=== PATIENT | male | born 1985 | race Caucasian/White ===

== ENCOUNTER 2016-11-06 20:41 | Inpatient (IN) | payer OTHER ==
--- NOTE | ~2016-11-06 | PN ---
Unit #: [id number] #: [id number] Patient: NATHEN MCFARLANE [id number] [facility] [address] [place] [address] [id number] MR#: [id number] NAME: NATHEN MCFARLANE ROOM: [facility] Age: 31 Sex: M Admission Date: 11/07/2016 : 1985 Attending Physician: Chapin Buck M.D. Admitting Physician: Chapin Buck M.D. Primary Care Physician: Generic Doctor Not In System [facility] PROGRESS NOTES DATE 11/08/2016 DISCUSSION Mr. Mcfarlane is a 31-year-old, white male who was seen today and chart was reviewed and case was discussed with the staff. He has been anxious, withdrawn and rather seclusive to himself. Meanwhile, he has been cooperative with treatment recommendations. He has been taking medications and tolerating them fairly well. MENTAL STATUS EXAM Young white male who was casually dressed with fair personal hygiene, appears to be in no acute distress or discomfort. He was awake and alert on interaction with intact orientation. His mood was anxious and depressed with congruent affect. He denies any suicidal or homicidal ideation. Also, denies any auditory or visual hallucinations. His insight and judgement remains slightly impaired. TREATMENT PLAN 1. We will continue him on his current medications and treatment protocol. We will monitor his response to the medication and make further adjustments as needed. 2. We will continue to follow up. Dictated by... Dylon Odell/carrillo TD: 11/10/2016 05:14 JOB #: [id number] Unit #: [id number] #: [id number] Patient: NATHEN MCFARLANE PROGRESS NOTES Page 1 of 1 X Chapin Buck MD PROGRESS NOTE
--- NOTE | ~2016-11-06 | PN ---
Unit #: [id number] #: [id number] Patient: NATHEN MCFARLANE [id number] [facility] [address] [place] [address] [id number] MR#: [id number] NAME: NATHEN MCFARLANE ROOM: [facility] Age: 31 Sex: M Admission Date: 11/07/2016 : 1985 Attending Physician: Chapin Bukc M.D. Admitting Physician: Chapin Buck M.D. Primary Care Physician: Generic Doctor Not In System [facility] PROGRESS NOTES DATE OF SERVICE 11/09/2016 DISCUSSION Mr. Mcfarlane is a 31-year-old white male who was seen today. Chart was reviewed and case was discussed with the staff. He has been anxious, withdrawn, and rather seclusive to himself and was subsequently seen to be lying in his bed. Meanwhile, he has been cooperative with treatment recommendation and has been taking the medications and tolerating them fairly well with no reported side effects. MENTAL STATUS EXAMINATION Young white male who is casually dressed with fair personal hygiene, appears to be in no acute distress or discomfort. He was awake and alert on interaction with intact orientation. His mood is anxious and depressed with congruent affect. He denies any suicidal or homicidal ideations and also denies any auditory or visual hallucinations. His insight and judgment remain slightly impaired. TREATMENT PLAN 1. We will continue him on his current medications and treatment protocol. We will monitor his response to the medications and make further adjustments as needed. 2. We will continue to follow up. Dictated by... Dylon Odell/magdalena TD: 11/10/2016 08:58 JOB #: [id number] Unit #: [id number] #: [id number] Patient: NATHEN MCFARLANE PROGRESS NOTES Page 1 of 1 X Chapin Buck MD PROGRESS NOTE
--- NOTE | ~2016-11-06 | HP ---
Unit #: [id number] #: [id number] Patient: NATHEN MCFARLANE [id number] [place] [address] [id number] I MR#: [id number] NAME: NATHEN MCFARLANE ROOM: [facility] Age: 31 Sex: M Admission Date: 11/07/2016 : 1985 Attending Physician: Chapin Buck M.D. Admitting Physician: Chapin Buck M.D. Primary Care Physician: Generic Doctor Not In System HISTORY AND PHYSICAL HISTORY OF PRESENT ILLNESS The patient is a 31-year-old male who states he is here for heroin detox. PAST MEDICAL HISTORY None. PAST SURGICAL HISTORY None. ALLERGIES Patient states none. SOCIAL HISTORY Positive for smoking and heroin. FAMILY HISTORY Noncontributory. REVIEW OF SYSTEMS CONSTITUTIONAL: No fever or chills. HEENT: Denies any sore throat, ear pain or runny nose. CARDIOVASCULAR: Denies chest pain, irregular heart rhythm or palpitations. CHEST: Denies shortness of breath or cough. No hemoptysis. GASTROINTESTINAL: Denies nausea, vomiting, diarrhea or chronic constipation. ENDOCRINE: Denies history of increased thirst or urination. No recent significant weight loss or gain. GENITOURINARY: Denies dysuria, frequency, or hematuria. SKIN: Denies any rashes. HEMATOLOGIC: Denies history of increased bleeding or bruising. MUSCULOSKELETAL: Denies any hot, swollen joints. No generalized muscle pain. NEUROLOGIC: Denies problems with vision or speech. No frequent, severe headaches. No numbness, tingling or weakness in any extremities. Denies loss of bladder or bowel control. CURRENT MEDICATIONS None. PHYSICAL EXAMINATION GENERAL: Alert, oriented, in no acute distress. VITAL SIGNS: Temp 98.4, heart rate 80, blood pressure 122/85, respirations 16. Unit #: [id number] #: [id number] Patient: NATHEN MCFARLANE HEIGHT: 5 feet 9 inches. WEIGHT: 140 pounds. SKIN: Warm and dry without rash or lesion. Multiple scars to bilateral hands, right lower quadrant, bilateral rahman areas, bilateral heels, right shoulder, tattoo to the left scapular area and scars bilateral frontal areas on face. HEENT: Normocephalic. TMs not viewed. Oral and nasal passages clear. Conjunctivae clear. PERRLA. EOMs intact. NECK: Supple without lymphadenopathy or thyromegaly. HEART: Regular rate and rhythm without murmur. LUNGS: Clear. ABDOMEN: Soft, nontender, without masses or hepatosplenomegaly. : Not done. EXTREMITIES: No evidence of cyanosis, clubbing or edema. Moves all without focal deficit. NEUROLOGICAL: Grossly within normal limits. Cranial Nerves: II: Visual kidd are intact. III, IV AND : Extraocular movements are intact. Pupils are equal, round and reactive to light. V: Facial sensation is grossly normal. VII: Facial movements and expression are normal. VIII: Auditory acuity grossly intact. IX, X: Uvula is midline. Phonation is normal. XI: Patient shrugs shoulders and turns head normally. XII: Tongue protrudes in the midline. Sensory and Motor Function: Sensory and motor sensation is grossly normal. Motor: moves all extremities well. Coordination: Gait is normal. Deep Tendon Reflexes: Intact. IMPRESSION Psychiatric admission. RECOMMENDATIONS PSYCHIATRIC: Per psychiatrist. MEDICAL: No contraindications to participate in facility's activities. MEDICAL PROGNOSIS Good. Dictated by... Olvin Sawyer/rabia TD: 11/07/2016 17:49 JOB #: [id number] Unit #: [id number] #: [id number] Patient: NATHEN MCFARLANE HISTORY AND PHYSICAL Page 1 of 1 X Cara Chicas APR X HISTORY AND PHYSICAL
--- NOTE | ~2016-11-06 | DS ---
Unit #: [id number] #: [id number] Patient: NATHEN MCFARLANE [id number] [facility] [address] [id number] I MR#: [id number] NAME: NATHEN MCFARLANE ROOM: [facility] Age: 31 Sex: M Admission Date: 11/07/2016 : 1985 Discharge Date: 11/10/2016 Attending Physician: Chapin Buck M.D. Primary Care Physician: Generic Doctor Not In System DISCHARGE SUMMARY IDENTIFYING DATA Mr. Mcfarlane is a 31-year-old single white male, who is a resident of [place], [place], and was transferred to us from [facility] on a voluntary basis. DISCHARGE DIAGNOSES Psychiatric: Opioid dependence, moderate and acute withdrawals; opioid-induced mood disorder. Medical: None. Stressors: Moderate psychosocial stressors. HISTORY OF PRESENT ILLNESS Please see initial psychiatric evaluation for details. PAST PSYCHIATRIC HISTORY Please see initial psychiatric evaluation for details. PAST MEDICAL HISTORY Please see initial psychiatric evaluation for details. HOSPITAL COURSE The patient was admitted to the adult chemical dependency unit at [facility] and was oriented to the hospital environment. Routine p.r.n. medications were initiated, and he was started on the opioid detox protocol and was closely monitored. He was taking the medications regularly and was tolerating them fairly well and was able to show a decent and therapeutic response with improvement in depression and anxiety and was willing to continue treatment on an outpatient basis and as such, it was decided that he will be discharged home and will continue treatment on an outpatient basis. DISCHARGE MEDICATIONS None. DISCHARGE CONDITION Stable. PROGNOSIS Fair. Dictated by... Chapin Buck M.D. Unit #: [id number] #: [id number] Patient: NATHEN MCFARLANE IAA/modl TD: 11/10/2016 06:54 JOB #: [id number] DISCHARGE SUMMARY Page 1 of 1 X Chapin Buck MD DISCHARGE SUMMARY
--- NOTE | ~2016-11-06 | PA ---
Unit #: [id number] #: [id number] Patient: NATHEN MCFARLANE [id number] [facility] [address] [place] [address] [id number] I MR#: [id number] NAME: NATHEN MCFARLANE ROOM: [facility] Age: 31 Sex: M Admission Date: 11/07/2016 : 1985 Date of Assessment: Attending Physician: Chapin Buck M.D. Admitting Physician: Chapin Buck M.D. Primary Care Physician: Jannette Doctor Not In System PSYCHIATRIC ASSESSMENT DATE OF SERVICE 11/07/2016. IDENTIFYING DATA Mr. Mcfarlane is a 31-year-old single white male, who is a resident of [facility] and was transferred to us from [facility] on a voluntary basis. CHIEF COMPLAINT "Heroin addiction." HISTORY OF PRESENT ILLNESS Mr. Mcfarlane is a 31-year-old white male, who came to the emergency department at [facility] stating that he is here due to heroin addiction. He reported that he no longer feels hard from using at this current level and he is sick of being addicted and would like medical detox in order to stop using. 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 He denies any suicidal ideations, intent, or plan. SUBSTANCE ABUSE HISTORY The patient reports opioids to be his drug of choice and has been using heroin for 1.5 g a day for years and denies any other drug abuse. PAST PSYCHIATRIC HISTORY The patient has had history of chemical dependency rehab in the past, and review of the medical records indicate that currently he is not active in any treatment program, is not seeing a psychiatrist, and not taking any psychotropic medications. PAST MEDICAL HISTORY No acute or chronic medical illnesses. ALLERGIES No known medication allergies. CURRENT MEDICATIONS None. PERSONAL AND SOCIAL HISTORY A 31-year-old white male, who reports that he is single, unemployed, and Unit #: [id number] #: [id number] Patient: NATHEN MCFARLANE lives with a roommate and has poor social support system. MENTAL STATUS EXAMINATION Young white male, who was casually dressed with fair personal hygiene, appears to be in no acute distress or discomfort. He was awake and alert on interaction with intact orientation to time, place, and person. His mood was anxious with a congruent affect. His speech was slow and restricted in content. His thought processes were disorganized with some looseness of associations. He denies any suicidal or homicidal ideations and also denies any auditory or visual hallucinations. His insight and judgment remain significantly impaired. DIAGNOSTIC IMPRESSION Psychiatric: Opioid dependence, moderate, in acute withdrawals; opioid-induced mood disorder. Medical: None. Stressors: Moderate psychosocial stressors. TREATMENT PLAN 1. The patient has presented with history of substance abuse and mood disorder, and has been decompensating and will need inpatient hospitalization for detoxification, safety, and stabilization. We will start him on detox protocol. We will closely monitor for any worsening withdrawal symptoms. 2. Supportive therapy was provided to the patient. 3. Safe, structured, and nourishing environment will be provided. ESTIMATED LENGTH OF STAY 4 to 5 days. ABILITY TO HELP SELF Limited. WILLINGNESS TO HELP SELF The patient appears to be willing to help self. STRENGTHS 1. Communicative. 2. Cooperative. PROBLEMS 1. Chronic chemical dependency. 2. Chronic dysphoric symptoms. 3. Poor social support system. DISCHARGE CRITERIA This will be contingent upon the patient's ability to go through detox without having any significant withdrawal symptoms as well as ability to stay safe to himself, particularly after discharge from the hospital. Dictated by... Dylon Odell/ericka TD: 11/08/2016 02:10 JOB #: [id number] Unit #: [id number] #: [id number] Patient: MAEVERAISANATHEN PSYCHIATRIC ASSESSMENT Page 1 of 1 X Chapin Buck MD PSYCHIATRIC ASSESSMENT
[2016-11-07 14:03] LABS: BASOPHIL# 0.1 X10e3 (0-0.3); EOSINOPHIL# 0.2 X10e3 (0-0.7); EOSINOPHIL% 2.6 % (0.0-7.0); HEMATOCRIT 37.6 % (38.0-50.0); LYMPHOCYTE# 4.4 X10e3 (1.0-3.5); LYMPHOCYTE% 46.8 % (17.0-45.0); MEAN CELL VOLUME 85.9 FL (83-96); MEAN CORPUSCULAR HEMOGLOBIN 29.7 PG (28-34); MEAN CORPUSCULAR HGB CONC 34.6 g/dL (30-36); MEAN PLATELET VOLUME 8.5 FL (6.5-11.5); MONOCYTE# 0.7 X10e3 (0-1.0); MONOCYTE% 7.9 % (3.0-12.0); NEUTROPHIL# 3.9 X10e3 (1.5-7.1); NEUTROPHIL% 41.7 % (40-75); PLATELET COUNT 303 X10e3 (140-420); RED BLOOD COUNT 4.38 X10e (3.90-5.60); RED CELL DISTRIBUTION WIDTH 13.1 % (11.0-15.5); WHITE BLOOD COUNT 9.3 X10e3 (4.0-10.5)
[2016-11-07 14:08] LABS: DIFF IND NO
[2016-11-07 14:30] LABS: URINE APPEARANCE TURBID; URINE BILIRUBIN NEG (NEG); URINE BLOOD NEG (NEG); URINE COLOR DK YELLOW; URINE GLUCOSE NEG (NEG); URINE KETONE TRACE (NEG); URINE LEUKOCYTE ESTERASE NEG (NEG); URINE NITRATE NEG (NEG); URINE PROTEIN NEG (NEG); URINE SPECIFIC GRAVITY 1.028 (1.003-1.035)
== END 2016-11-10 10:04 | disposition home or self-care (01) | DRG 897 ==
LOC: P1E 11-07 00:33
PROVIDERS: Psychiatry & Neurology Psychiatry
PROC: HZ2ZZZZ Detoxification Services for Substance Abuse Treatment (ICD-10-PCS; principal; 2016-11-07)
DX: F11.23 Opioid dependence with withdrawal (principal); F11.24 Opioid dependence with opioid-induced mood disorder; F17.210 Nicotine dependence, cigarettes, uncomplicated
CPT/HCPCS: 81003; 85025; 86592